=== PATIENT | female | born 1960 | race Asian ===

== ENCOUNTER 2018-11-03 05:49 | Day surgery (SDC) | payer OTHER ==
[~2018-11-03 05:49] MED LIST: CEFAZOLIN 2 GM/50 ML (PMX) 50 ML IVPB; SOD CHLORIDE 0.9% 1,000 ML IV
[2018-11-03] MEDS ORDERED: PROPOFOL 100 ML (07:41)
[2018-11-03] MEDS ORDERED: FENTAnyl 50 MCG/ML VIAL (07:43)
[2018-11-03] MEDS ORDERED: DEXAMETHASONE 4 MG/ML 5 ML INJ (08:12)
[2018-11-03] MEDS ORDERED: ONDANSETRON 4 MG INJ (08:12)
[2018-11-03] MEDS: BUPIVACAINE 0.25% (MPF) 30 ML INJ (08:22)
[2018-11-03] MEDS ORDERED: DIPHENHYDRAMINE 50 MG INJ IV (08:30)
[2018-11-03] MEDS ORDERED: EPHEDrine SULFATE 50 MG/5 ML SYG IV (08:30)
[2018-11-03] MEDS ORDERED: OXYCODONE/ACETAMINOPHEN (5/325) TAB PO ×2 (08:30)
[2018-11-03] MEDS ORDERED: FENTAnyl 50 MCG/ML VIAL IV ×3 (08:30)
[2018-11-03] MEDS ORDERED: LABETALOL HCL 20MG INJ IV (08:30)
[2018-11-03] MEDS ORDERED: METOCLOPRAMIDE 10 MG INJ IV (08:30)
[2018-11-03] MEDS ORDERED: ALBUTEROL 0.083% (NEB) 2.5 MG/3 ML AMP HHN (08:30)
[2018-11-03] MEDS ORDERED: HYDROCODONE/APAP (5/325) TAB PO (08:30)
[2018-11-03] MEDS ORDERED: ONDANSETRON 4 MG INJ IV (08:30)
[2018-11-03] MEDS ORDERED: MIDAZOLAM 1 MG/ML 2 ML INJ IV (08:30)
[2018-11-03] MEDS ORDERED: hydrALAzine 20 MG INJ IV (08:30)
[2018-11-03] MEDS ORDERED: MEPERIDINE 25 MG INJ IV (08:30)
== END 2018-11-03 09:36 | disposition home or self-care (01) ==
LOC: SDS 05:49
DX: C83.32 Diffuse large B-cell lymphoma, intrathoracic lymph nodes (principal)
CPT/HCPCS: 14000; 88305; 88341; 88342